=== PATIENT | male | born 1980 | race Two or more races ===

== ENCOUNTER 2021-01-05 16:59 | Emergency (ER) | payer OTHER ==
[~2021-01-05] VITALS: Ht 180.3 cm; Wt 88.5 kg
[2021-01-05] MEDS ORDERED: PEPCID AC20 MG PO (17:22)
[2021-01-05] MEDS ORDERED: ACID REDUCER20 M1 (17:22)
[2021-01-05] MEDS ORDERED: PYRIDIUM100 M1 PO (20:41)
== END 2021-01-05 21:39 | disposition home or self-care (01) ==
LOC: ER 16:59
DX: N39.0 Urinary tract infection, site not specified (principal)